=== PATIENT | female | born 1985 | race American Indian/Alaskan Native ===

== ENCOUNTER 2016-06-26 22:08 | Emergency (ER) | payer OTHER ==
[2016-06-26 23:04] LABS: Hematocrit 26.2 % (30.3-42.9); Mean Corpuscular HGB Conc 30 % (30-34); Mean Corpuscular Volume 74 fl (79-97); Platelet Count 329 K/mm3 (140-440); Red Blood Count 3.56 M/mm3 (3.65-5.03); White Blood Count 4.6 K/mm3 (4.5-11.0)
[2016-06-26 23:08] LABS: Mean Corpuscular Hemoglobin 22 pg (28-32); Red Cell Distribution Width 21.1 % (13.2-15.2)
[2016-06-26 23:29] LABS: Anion Gap 16 mmol/L; BUN/Creatinine Ratio 18.33; Blood Urea Nitrogen 11 mg/dL (7-17); Carbon Dioxide 26 mmol/L (22-30); Chloride 100.1 mmol/L (98-107); Glucose 105 mg/dL (65-100); Potassium 3.9 mmol/L (3.6-5.0); Sodium 138 mmol/L (137-145)
[2016-06-27 00:06] LABS: Bilirubin,Urine NEG (Negative); Blood,Urine NEG (Negative); Ketones,Urine NEG (Negative); Leukocyte Esterase,Urine NEG (Negative); Nitrite,Urine NEG (Negative); Protein,Urine <15 mg/dL mg/dL (Negative); Urobilinogen,Urine < 2.0 mg/dL (<2.0); WBC,Urine < 1.0 /HPF (0.0-6.0)
[2016-06-27 01:07] LABS: Blastocytes % (Manual) 0 %
[2016-06-27 01:08] LABS: Anisocytosis 1+; Diff Status Complete; Elliptocytes 1+; Hypochromasia 1+; Platelet Estimate Consistent w Auto
--- NOTE | 2016-06-27 03:42 | Emergency Department Report ---
HPI - General Chief Complaint: Upper Respiratory Infection Time Seen by Provider: 06/27/16 02:07 - HPI HPI: This is a 30-year-old female presents to ED complaining of cold symptoms for about a week. Patient states about a week she had some coughing ,chest congestion and runny nose. Patient states earlier today she felt her heartbeat a bit faster. She admits that she can a couple days of amoxicillin that was prescribed to her sometime early and during the year. She denies taking any other medication. Patient admits a history of panic attack last episode 2008. Patient denies fever/chills/nausea/vomiting/abdominal pain or any other problems. Patient denies chest pain ED Past Medical Hx - Past Medical History Previous Medical History?: No - Surgical History Past Surgical History?: Yes Additional Surgical History: MYOMECTOMY - Social History Smoking Status: Never Smoker Substance Use Type: None - Medications Home Medications: Home Medications Medication Instructions Recorded Confirmed Last Taken Type Benzonatate [Tessalon Perles] 100 mg PO Q8HR #20 capsule 06/27/16 Unknown Rx Cetirizine HCl [ZyrTEC] 10 mg PO DAILY #20 tab.rapdis 06/27/16 Unknown Rx guaiFENesin [Mucinex] 600 mg PO BID #14 tab.er.12h 06/27/16 Unknown Rx ED Review of Systems ROS: Stated complaint: RAPID HEART BEAT/FEEL FAINT Other details as noted in HPI Constitutional: denies: chills, fever Eyes: denies: eye pain, eye discharge, vision change ENT: congestion. denies: ear pain, throat pain Respiratory: cough. denies: shortness of breath, wheezing Cardiovascular: denies: chest pain, palpitations Endocrine: no symptoms reported Gastrointestinal: denies: abdominal pain, nausea, vomiting, diarrhea Genitourinary: denies: urgency, dysuria, frequency, hematuria, discharge Musculoskeletal: denies: back pain, joint swelling, arthralgia Skin: denies: rash, lesions Neurological: denies: headache, weakness, paresthesias Psychiatric: denies: anxiety, depression Hematological/Lymphatic: denies: easy bleeding, easy bruising Physical Exam - Physical Exam Vital Signs: Vital Signs 06/26/16 22:32 Temperature 98.3 F Pulse Rate 72 Respiratory 20 Rate Blood Pressure 116/80 O2 Sat by Pulse 100 Oximetry Physical Exam: GENERAL: Alert and oriented x3, no apparent distress, Normal Gait, atraumatic. HEAD: Head is normocephalic and a-traumatic. EYES: Extra ocular muscles are intact. Pupils are equal, round, and reactive to light and accommodation EARS: symetrical, atraumatic, non tender, ear canal clear and moderate cerumen, tympanic membrance non inflamed. gross auditory nml bilaterally. NOSE: Nose symetrical, Nontender,Nares appeared normal. MOUTH:Mouth is well hydrated and without lesions. Tonsils nonerythematous or swollen, Uvula midline, Tongue not elevated. Mucous membranes are moist. Posterior pharynx clear, no exudate or lesions. Patent airways. NECK: Supple. Non edematous, No carotid bruits. No lymphadenopathy or thyromegaly. No C-spine tenderness LUNGS: Symetrical with respiration, No wheezing, no rales or crackles, CTAB. HEART: S1, S2 present, regular rate and rhythm without murmur, no rubs, no gallops. ABDOMEN: No organomegaly was noted,Positive bowel sounds, soft, and non- distended. . Nontender to palpation on all Quadrants, NO CVA tenderness. SKIN: Warm and dry, No lesions, No ulceration or induration present. ED Course Vital Signs 06/26/16 22:32 Temperature 98.3 F Pulse Rate 72 Respiratory 20 Rate Blood Pressure 116/80 O2 Sat by Pulse 100 Oximetry ED Medical Decision Making - Lab Data Result diagrams: 06/26/16 22:41 06/26/16 22:41 - Medical Decision Making 30-year-old presents with cold symptoms ED course: EKG and labs were ordered prior to me evaluating this patient. EKG mildly abnormal discussed findings with patient discussed follow-up with a road mixer operator for further evaluation CBC- mild anemia, otherwise normal. BMP and urinalysis - normal. Patient verbally states she feels better and does not have any symptoms at the moment. Patient and wanted to know who she is to see regarding her anxiety attack I discussed the patient she will need to see a therapist or psychiatrist to be evaluated. Discussed referral is given to follow-up with [facility]. Discussed the patient to follow up with primary care physician. Vital signs are normal patient is in no acute respiratory distress. Patient verbally states she understands and versus given a will follow-up Critical care attestation.: If time is entered above; I have spent that time in minutes in the direct care of this critically ill patient, excluding procedure time. ED Disposition Clinical Impression: Common cold, Bronchitis Disposition: DISCHARGED TO HOME OR SELFCARE Is pt being admited?: No Does the pt Need Aspirin: No Condition: Stable Instructions: Cold Symptoms (ED), Chronic Bronchitis (ED) Prescriptions: Benzonatate [Tessalon Perles] 100 mg PO Q8HR #20 capsule Cetirizine HCl [ZyrTEC] 10 mg PO DAILY #20 tab.rapdis guaiFENesin [Mucinex] 600 mg PO BID #14 tab.er.12h Referrals: PRIMARY CAREMD [Primary Care Provider] - 3-5 Days DARREL HUGGINS MD [Referring] - 3-5 Days [facility] [Outside] - 3-5 Days [facility] [Outside] - 3-5 Days [facility] [Outside] - 3-5 Days [facility] [Outside] - 3-5 Days Forms: Work/School Release Form(ED) Time of Disposition: 04:07
[2016-06-27 04:25] VITALS: BP 115/76
== END 2016-06-27 04:23 | disposition home or self-care (01) ==
LOC: ED 22:08
DX: J40 Bronchitis, not specified as acute or chronic (principal); J00 Acute nasopharyngitis [common cold]; Z90.89 Acquired absence of other organs; Z91.018 Allergy to other foods; Z91.048 Other nonmedicinal substance allergy status
CPT/HCPCS: 36415; 80048; 81001; 81025; 85007; 85025; 93005; 93010; 99283

== ENCOUNTER 2016-09-07 11:26 | Emergency (ER) | payer OTHER ==
[2016-09-07 11:53] VITALS: BP 119/82
--- NOTE | 2016-09-07 14:22 | Emergency Department Report ---
ED General Adult HPI - General Chief complaint: Upper Respiratory Infection Stated complaint: MOLD EXPOSURE,ACID REFLUX,CHEST Time Seen by Provider: 09/07/16 13:55 Source: patient Mode of arrival: Ambulatory Limitations: No Limitations - History of Present Illness Initial comments: PT states that six months ago she had to move due to her her apartment having mold. PT states she got rid a lot of her belongings because of the mold. PT states over the previous 6 months, she has had several URIs. PT also reports acid reflex x 3-4 months. PT is currently not treating her acid reflux symptoms. PT states today, she noticed that she had mold on her furniture. PT states she wanted to get checked out because a week ago, she had sore throat and some cp. PT denies any symptoms currently. PT states she was seen in ED a few months ago and she was prescribed allergy medication. PT states that she felt better when she was taking the allergy medicine. Complaint: allergies -: Gradual, month(s) Severity scale (0 -10): 0 Consistency: intermittent, now resolved Improves with: medication Associated Symptoms: denies: fever/chills, loss of appetite, nausea/vomiting, shortness of breath - Related Data Previous Rx's Medication Instructions Recorded Last Taken Type Cetirizine HCl [ZyrTEC] 10 mg PO DAILY #30 capsule 09/07/16 Unknown Rx Famotidine [Pepcid] 20 mg PO BID #60 tablet 09/07/16 Unknown Rx Allergies Allergy/AdvReac Type Severity Reaction Status Date / Time eli Allergy Angioedema Verified 06/26/16 22:31 nickel Allergy Itching Verified 06/26/16 22:30 ED Review of Systems ROS: Stated complaint: MOLD EXPOSURE,ACID REFLUX,CHEST Other details as noted in HPI Comment: All other systems reviewed and negative Constitutional: denies: fever ENT: throat pain. denies: congestion Respiratory: denies: cough Cardiovascular: chest pain Gastrointestinal: other (acid reflux ). denies: nausea, vomiting Genitourinary: denies: abnormal menses ED Past Medical Hx - Past Medical History Previous Medical History?: No - Surgical History Additional Surgical History: MYOMECTOMY - Social History Smoking Status: Never Smoker Substance Use Type: None - Medications Home Medications: Home Medications Medication Instructions Recorded Confirmed Last Taken Type Cetirizine HCl [ZyrTEC] 10 mg PO DAILY #30 capsule 09/07/16 Unknown Rx Famotidine [Pepcid] 20 mg PO BID #60 tablet 09/07/16 Unknown Rx ED Physical Exam - General Limitations: No Limitations General appearance: alert, in no apparent distress - Head Head exam: Present: atraumatic, normocephalic, normal inspection - Eye Eye exam: Present: normal appearance, PERRL, EOMI, conjunctival injection - ENT ENT exam: Present: normal exam, normal orophraynx, mucous membranes moist, TM's normal bilaterally, normal external ear exam - Neck Neck exam: Present: normal inspection, full ROM - Respiratory Respiratory exam: Present: normal lung sounds bilaterally. Absent: respiratory distress, wheezes, chest wall tenderness - Cardiovascular Cardiovascular Exam: Present: regular rate, normal rhythm, normal heart sounds - GI/Abdominal GI/Abdominal exam: Present: soft. Absent: tenderness - Extremities Exam Extremities exam: Present: normal inspection, full ROM - Back Exam Back exam: Present: normal inspection, full ROM - Neurological Exam Neurological exam: Present: alert, oriented X3, normal gait - Psychiatric Psychiatric exam: Present: normal affect, normal mood - Skin Skin exam: Present: warm, dry, intact ED Course Vital Signs 09/07/16 11:51 Temperature 98.9 F Pulse Rate 71 Respiratory 18 Rate Blood Pressure 119/82 O2 Sat by Pulse 100 Oximetry - Reevaluation(s) Reevaluation #1: 09/07/16 16:56 PT aware of CXR results. PT has no questions at this time. - Pulse Oximetry Interpretation Digit-Finger Initial Pulse Oximetry Readin Actions Taken: none ED Medical Decision Making - EKG Data -: EKG Interpreted by Me (and ED MD ) EKG shows normal: sinus rhythm Rate: normal (61) - Radiology Data Radiology results: report reviewed CXR- NAP - Differential Diagnosis allergic rhinitis, gerd, bronchitis Critical Care Time: No Critical care attestation.: If time is entered above; I have spent that time in minutes in the direct care of this critically ill patient, excluding procedure time. ED Disposition Clinical Impression: Exposure to mold GERD (gastroesophageal reflux disease) Qualifiers: Esophagitis presence: without esophagitis Qualified Code(s): K21.9 - Gastro- esophageal reflux disease without esophagitis Disposition: TO HOME OR SELFCARE Is pt being admited?: No Does the pt Need Aspirin: No Condition: Stable Instructions: Diet for Ulcers and Gastritis (ED), Allergic Rhinitis (ED), Gastroesophageal Reflux Disease (ED), Allergies (ED) Prescriptions: Cetirizine HCl [ZyrTEC] 10 mg PO DAILY #30 capsule Famotidine [Pepcid] 20 mg PO BID #60 tablet Referrals: PRIMARY CARE, [Primary Care Provider] - 3-5 Days Forms: Work/School Release Form(ED) Time of Disposition: 16:56
--- NOTE | 2016-09-07 16:54 | XRay Report ---
FINAL REPORT PROCEDURE: XR CHEST ROUTINE 2V TECHNIQUE: Two views of the chest are obtained HISTORY: exposure to mold COMPARISON: No prior studies are available for comparison. FINDINGS: The heart is normal in size. There is no focal infiltrate, pneumothorax or pleural effusion. IMPRESSION: No abnormalities are seen.
== END 2016-09-07 17:05 | disposition home or self-care (01) ==
LOC: ED 11:26
DX: K21.9 Gastro-esophageal reflux disease without esophagitis (principal); Z77.120 Contact with and (suspected) exposure to mold (toxic); Z91.018 Allergy to other foods; Z91.048 Other nonmedicinal substance allergy status
CPT/HCPCS: 71020; 81025; 93005; 93010